=== PATIENT | male | born 1955 | race Caucasian/White ===

== ENCOUNTER 2023-07-18 07:59 | Emergency (ER) | payer OTHER, SELFPAY ==
[2023-07-18 08:03] VITALS: BP 182/90
--- NOTE | 2023-07-18 08:57 | ED.GENMED ---
History of Present Illness
General
Chief Complaint: Musculo-Skeletal Complaint
Source: patient
Time Seen by Provider: 07/18/23 08:42
Travel History
Have you had any contact with someone who has COVID-19?: No
Do you have any symptoms of coronavirus? Fever > 100 degrees, chills, cough, shortness of breath, sore throat, loss of taste or smell, muscle aches, or headache?: No
History of Present Illness
History of Present Illness:
67-year-old male presents to the emergency room complaining of right sided chest pain. Patient states he slipped on ice causing him to slide down a hill and then fall onto a pile of tools. The right side of his chest landed on the toes. He has
significant pain particularly with any minimal movement. No shortness of breath. No abdominal pain. He did not strike his head. He does not take any oral anticoagulants.
Past History
Past History
ED Past Medical History: HTN
ED Past Surgical History: Bowel resection
Social History
Personal:
Living: with family
Employment: Employed
Phy Exam
Physical Exam
Physical Exam:
General: Awake, Alert, Oriented X3. No acute distress.
Vitals: unremarkable
Head: Atraumatic
Eyes: Pupils equal, EOMI
Throat: Airway intact, no exudates
Neck: Trachea midline
Chest: Tenderness palpation over the lateral right thorax from just under the axilla down to approximately the ninth or 10th rib. No crepitance.
Lungs: Clear and equal b/l
Heart: Regular rate, no murmurs
Abd: Soft, Nontender, No pulsatile mass
Neuro: Nonfocal
Skin: Warm, dry, no rash
Extremities: pulses equal b/l, no edema
Course
Orders/Labs/Results
Orders:
Orders
07/18/23 08:07
Ribs, Right 3 View W/PA Chest [CR Ribs-right 3 Vw W/pa Chest*] Urgent
Comment:
Reason For Exam: injury
07/18/23 08:56
Ibuprofen [Motrin] 600 mg PO NOW STA
Oxycodone [Roxicodone] 5 mg PO NOW STA
07/18/23 09:24
Urinalysis Urgent
Date Specimen was Collected: 07/18/23
Time Specimen was Collected: 09:22
Abnormal Lab Results
07/18/23
09:24
Urine Ketones 1+ A
(Negative)
Urine Glucose 3+ A
(Negative)
Vital Signs
Initial and Last Documented VS:
Initial Vital Signs
Temp Pulse Resp BP Pulse Ox
97.7 F 66 16 182/90 99
07/18/23 08:03 07/18/23 08:03 07/18/23 08:03 07/18/23 08:03 07/18/23 08:03
Last Documented Vital Signs
Temp Pulse Resp BP Pulse Ox
97.7 F 66 16 182/90 99
07/18/23 08:03 07/18/23 08:03 07/18/23 08:03 07/18/23 08:03 07/18/23 08:03
MDM/Problems Addressed
Differential Diagnosis Includes:
Rib fractures, pneumothorax, pulmonary contusion, chest wall contusion
MDM/Problems Addressed:
Rib spirometer. Shows 3 nondisplaced rib fractures. He has no pneumothorax. Patient was observed for 3 hours in the emergency room without respiratory distress. Stable for discharge home. Treat with analgesia also
*Radiology
Radiology exam reviewed: radiology read reviewed
*Pulse Oximetry
Patient hypoxic: no
*Critical Care Note
Total Time (30-74mins, 75-104mins- exclusive of procedures): Not Applicable
ED Attending Note
-
Portions of this chart may have been created with voice recognition software.� Occasional wrong word or��sound alike� substitutions may have occurred due to the inherent limitations of voice recognition software.
Discharge Plan
Departure
Patient Disposition: Home (Routine Discharge)
Date of Disposition: 07/18/23
Time of Disposition: 10:18
Patient with high blood pressure during this ER visit?: No
Condition: Good
Discharge Problem:
Multiple rib fractures
Instructions: Rib fractures in adults
Prescriptions:
New
oxycodone 5 mg tablet
5 mg PO Q6H PRN (Reason: Pain) Qty: 12 0RF
No Action
dextromethorphan-guaifenesin [Coricidin HBP Chest Jasen-Cough] 1 EACH capsule
1 ea PO DIRECTED PRN (Reason: congestion)
atenolol [Tenormin] 100 MG tablet
100 mg PO DAILY
tamsulosin 0.4 MG capsule
0.4 mg PO DAILY
metformin 500 MG tablet extended release 24 hr
500 mg PO DAILY
esomeprazole magnesium [Nexium 24HR] 20 MG tablet,delayed release (DR/EC)
40 mg PO DAILY
sulfamethoxazole-trimethoprim 1 TABLET tablet
1 tab PO BID Qty: 14 0RF
promethazine-codeine 5 ML syrup
5 ml PO Q4HPRN PRN (Reason: cough) Qty: 100 0RF
Activity Restrictions/Additional Instructions:
Your x-ray shows 3 rib fractures on the right. You can take 600mg of ibuprofen and 1000mg of Tylenol every 6 hours for pain. I have sent a prescription for oxycodone which you can take every 4 to 6 hours as needed for pain. Use the incentive
spirometer to help prevent pneumonia. Return if you are feeling increasing shortness of breath.
Interventions
Interventions:
*Risk Screen - Suicide Last Done: 07/18/23 08:03
*General Assessment Last Done: 07/18/23 08:03
*Neglect/Abuse Screening Last Done: 07/18/23 08:03
*Nursing Disposition Last Done: 07/18/23 10:59
ED-Musculoskeletal Assessment Last Done: 07/18/23 09:20
Discharge Date and Time
Discharge Date/Time: 07/18/23 10:59
[2023-07-18] MEDS: ROXICODONE 5 MG PO (09:21)
[2023-07-18] MEDS: MOTRIN 600 MG PO (09:21)
[2023-07-18 09:38] LABS: Urine Albumin Negative (Neg - Trace); Urine Bilirubin Negative (Negative); Urine Character Clear (Clear); Urine Color Yellow; Urine Glucose 3+ (Negative); Urine Ketone 1+ (Negative); Urine Leukocyte Negative (Negative); Urine Nitrite Negative (Negative); Urine Occult Blood Negative (Negative); Urine Urobilinogen Negative (Neg - 1+)
== END 2023-07-18 10:59 | disposition home or self-care (01) ==
LOC: EMR 07:59
PROVIDERS: EMERGENCY PHYSICIAN Emergency Medicine; FAMILY PHYSICIAN Internal Medicine
DX: S22.41XA Multiple fractures of ribs, right side, initial encounter for closed fracture (principal); W00.0XXA Fall on same level due to ice and snow, initial encounter
CPT/HCPCS: 99283; 71101; 81003

== ENCOUNTER → 2025-01-25 07:59 | Outpatient (REF) | payer BC, SELFPAY | LOC: RAD 07:59 | PROVIDERS: ATTENDING PHYSICIAN Orthopaedic Surgery; FAMILY PHYSICIAN Internal Medicine | DX: Z96.652 Presence of left artificial knee joint (principal) | CPT/HCPCS: 78315; A9503 ==